=== PATIENT | female | born 1950 | race Caucasian/White ===

== ENCOUNTER 2018-07-28 00:10 | Inpatient (IN) | payer MEDICARE, OTHER ==
[~2018-07-28] VITALS: Ht 152.9 cm; Wt 68.6 kg
[2018-07-28] MEDS ORDERED: ONDANSETRON HCL 4MG/2ML INJ IV STA (00:42)
[2018-07-28] MEDS ORDERED: SODIUM CHLORIDE 0.9% 1,000 ML IV ONE ×3 (00:42→10:58)
[2018-07-28] MEDS ORDERED: KETOROLAC 30MG/ML VIAL IV STA (00:42)
[2018-07-28 01:04] LABS: BASOPHILS % 0.4 % (0.0-2.0); EOSINOPHILS % 1.2 % (0.0-5.0); HEMATOCRIT. 45.6 % (36.0-48.0); HEMOGLOBIN. 15.3 g/dL (12.0-16.0); MEAN CORPUSCULAR HEMOGLOBIN 29.7 pg (28.0-32.0); MEAN CORPUSCULAR VOLUME 88.5 fL (81.0-99.0); MEAN PLATELET VOLUME 9.3 fl (7.4-10.4); MONOCYTES % 13.2 % (2.0-8.0); NEUTROPHILS % 74.2 % (40.0-76.0); PLATELET 176 x1000/uL (130-400); RED BLOOD CELL COUNT 5.15 mill/uL (4.2-5.4); RED CELL DISTRIBUTION WIDTH 13.3 % (11.6-14.6)
[2018-07-28 01:07] LABS: CHLORIDE 103 mEq/L (98-107)
[2018-07-28 01:08] LABS: PROTHROMBIN TIME 10.3 sec (9.6-11.0)
[2018-07-28 02:20] VITALS: BP 118/50
[2018-07-28] MEDS ORDERED: IOHEXOL-300 100 ML BOTTLE ONE (02:36)
[2018-07-28] MEDS ORDERED: METRONIDAZOLE 500 MG PREMIX 100 ML IV ONE (03:45)
[2018-07-28] MEDS ORDERED: CEFTRIAXONE 1 G PREMIX 50 ML IV ONE (03:45)
[2018-07-28] MEDS ORDERED: DEXT 5%/0.45% NACL 1000ML 1,000 ML IV SCH (06:52)
[2018-07-28] MEDS ORDERED: ONDANSETRON HCL 4MG/2ML INJ IV PRN ×3 (07:00→11:15)
[2018-07-28] MEDS ORDERED: DOCUSATE SODIUM 100MG CAPSULE PO PRN (07:00)
[2018-07-28] MEDS ORDERED: DIPHENHYDRAMINE 50MG/ML VIAL IV PRN (07:00)
[2018-07-28] MEDS ORDERED: GUAIFENESIN 200MG/10ML SUGAR FREE UDC PO PRN (07:00)
[2018-07-28] MEDS ORDERED: MAGNESIUM/ALUMINUM HYDROXIDE/SIMETHICONE 30ML UDC PO PRN (07:00)
[2018-07-28] MEDS ORDERED: CLONIDINE 0.1MG TABLET PO PRN (07:00)
[2018-07-28] MEDS ORDERED: LORAZEPAM 2MG/ML CPJ IV PRN (07:00)
[2018-07-28] MEDS ORDERED: IPRATROPIUM/ALBUTEROL 0.5-3(2.5)MG/3ML NEB INH PRN (07:00)
[2018-07-28] MEDS ORDERED: HYDRALAZINE 20MG/ML VIAL IV PRN (07:00)
[2018-07-28] MEDS ORDERED: ACETAMINOPHEN 325MG TABLET PO PRN (07:00)
[2018-07-28] MEDS ORDERED: METRONIDAZOLE 500 MG PREMIX 100 ML IV SCH ×2 (07:30→11:15)
[2018-07-28] MEDS ORDERED: LEVOFLOXACIN 500MG PREMIX 100 ML IV SCH ×2 (07:30→18:00)
[2018-07-28] MEDS ORDERED: PHENYLEPHRINE HCL 10 MG/ML 1ML (IV VIAL) IV ONE (08:14)
[2018-07-28] MEDS ORDERED: GLYCOPYRROLATE 0.2 MG/ML 2ML VIAL ONE (08:14)
[2018-07-28] MEDS ORDERED: LIDOCAINE HCL/PF 1% 10 MG/ML 5ML VIAL ONE (08:14)
[2018-07-28] MEDS ORDERED: MIDAZOLAM HCL 2 MG/2 ML VIAL ONE (08:14)
[2018-07-28] MEDS ORDERED: ROCURONIUM BROMIDE 10MG/ML VIAL 5ML IV ONE (08:14)
[2018-07-28] MEDS ORDERED: FENTANYL CITRATE/PF 50MCG/ML 2ML VIAL ONE ×3 (08:14→09:45)
[2018-07-28] MEDS ORDERED: NEOSTIGMINE METHYLSULFATE 1MG/ML 10 ML VIAL ONE (08:14)
[2018-07-28] MEDS ORDERED: PROPOFOL 200MG/20ML VIAL IV ONE (08:14)
[2018-07-28] MEDS ORDERED: SUCCINYLCHOLINE CHLORIDE 200MG/10ML IV ONE (08:14)
[2018-07-28] MEDS ORDERED: SODIUM CHLORIDE 0.9% 10ML VIAL ONE (08:14)
[2018-07-28] MEDS ORDERED: METOCLOPRAMIDE HCL 10MG/2ML VIAL ONE (08:14)
[2018-07-28] MEDS ORDERED: EPHEDRINE SULFATE 50MG/ML VIAL ONE (08:14)
[2018-07-28] MEDS ORDERED: ETOMIDATE 2MG/ML 10ML VIAL IV ONE (08:15)
[2018-07-28] MEDS ORDERED: ALBUMIN HUMAN 12.5G/250ML (5%) IV ONE (08:41)
[2018-07-28] MEDS ORDERED: BUPIVACAINE HCL 0.5% (5MG/ML) 50ML ONE (09:03)
[2018-07-28] MEDS ORDERED: HYDROMORPHONE HCL/PF 2MG/ML (OR) ONE (10:44)
[2018-07-28] MEDS ORDERED: MEPERIDINE HCL/PF 25MG/ML CPJ IV PRN ×2 (11:00)
[2018-07-28] MEDS ORDERED: MORPHINE SULFATE 2 MG/ML CPJ (NOT FOR IM USE) IV PRN (11:15)
[2018-07-28] MEDS: HYDROMORPHONE HCL/PF 2MG/ML CPJ IV PRN ×5 (11:43→16:21)
[2018-07-28 12:37] LABS: HEMATOCRIT 36.9 % (36.0-48.0); HEMOGLOBIN 12.2 g/dL (12.0-16.0); MEAN CORPUSCULAR HEMOGLOBIN 29.7 pg (28.0-32.0); MEAN CORPUSCULAR VOLUME 89.5 fL (81.0-99.0); RED BLOOD CELL COUNT 4.12 mill/uL (4.2-5.4); RED CELL DISTRIBUTION WIDTH 13.4 % (11.6-14.6)
[2018-07-28 13:14] LABS: PLATELET 138 x1000/uL (130-400)
[2018-07-28 14:38] VITALS: BP 118/50
[2018-07-28] MEDS ORDERED: INFLUENZA VIRUS VACCINE(AFLURIA) 0.5ML SYR IM ONE (15:45)
[2018-07-28] MEDS ORDERED: PNEUMOCOCCAL 23-VAL P-SAC VAC 0.5 ML IM ONE (15:45)
[2018-07-28 16:25] LABS: CHLORIDE 110 mEq/L (98-107)
[2018-07-28] MEDS: DEXT 5%/0.45% NACL KCL 20MEQ/L 1,000 ML IV SCH (16:30)
[2018-07-28] MEDS: ENOXAPARIN 40MG/0.4ML SYR SUBCUT SCH (16:30)
[2018-07-28] MEDS: ASPIRIN 81MG EC TABLET PO SCH (16:30)
[2018-07-28 16:47] VITALS: BP 120/46
[2018-07-28] MEDS: CEFAZOLIN 1000MG PREMIX 50 ML IV SCH (17:28)
[2018-07-28] MEDS ORDERED: ROSU10TA25 MT (18:00)
[2018-07-28] MEDS ORDERED: METF500S7 PO (18:00)
[2018-07-28] MEDS ORDERED: METF-414 MT (18:00)
[2018-07-28] MEDS ORDERED: FURO20TA4 PO (18:00)
[2018-07-28] MEDS ORDERED: VALS160T28 MT (18:00)
[2018-07-28] MEDS ORDERED: VITA400C73 MT (18:00)
[2018-07-28] MEDS ORDERED: CHOL200059 MT (18:00)
[2018-07-28] MEDS ORDERED: CARV25TA47 MT (18:00)
[2018-07-28] MEDS ORDERED: ASPI-1158 PO (18:00)
[2018-07-28] MEDS ORDERED: CYAN50003 MT (18:00)
[2018-07-28 20:00] VITALS: BP 98/53
[2018-07-28] MEDS: HYDROCODONE/ACETAMINOPHEN 10/325MG TABLET PO PRN (20:37)
[2018-07-28] MEDS: FAMOTIDINE 20MG/2ML VIAL IV SCH (20:37)
[2018-07-28] MEDS: METRONIDAZOLE 500 MG PREMIX 100 ML IV SCH (20:38)
[2018-07-28] MEDS: SODIUM CHLORIDE 0.9% INJ 3ML FLUSH IVF SCH (23:52)
[2018-07-29] VITALS (8 sets, daily range): BP systolic 94–136; BP diastolic 41–76
[2018-07-29] MEDS: CEFAZOLIN 1000MG PREMIX 50 ML IV SCH ×2 (02:20→09:23)
[2018-07-29] MEDS: DEXT 5%/0.45% NACL KCL 20MEQ/L 1,000 ML IV SCH ×3 (02:58→22:56)
[2018-07-29] MEDS: METRONIDAZOLE 500 MG PREMIX 100 ML IV SCH ×3 (02:59→18:42)
[2018-07-29] MEDS: HYDROMORPHONE HCL/PF 2MG/ML CPJ IV PRN ×3 (04:06→20:05)
[2018-07-29] MEDS: SODIUM CHLORIDE 0.9% INJ 3ML FLUSH IVF SCH ×3 (06:00→22:56)
[2018-07-29 06:57] LABS: BASOPHILS % 0.3 % (0.0-2.0); EOSINOPHILS % 4.7 % (0.0-5.0); HEMATOCRIT. 38.4 % (36.0-48.0); HEMOGLOBIN. 12.9 g/dL (12.0-16.0); LYMPHOCYTES % 9.8 % (20.0-50.0); MEAN CORPUSCULAR HEMOGLOBIN 29.9 pg (28.0-32.0); MEAN CORPUSCULAR VOLUME 89.1 fL (81.0-99.0); MONOCYTES % 11.9 % (2.0-8.0); NEUTROPHILS % 73.3 % (40.0-76.0); PLATELET 160 x1000/uL (130-400); RED BLOOD CELL COUNT 4.31 mill/uL (4.2-5.4); RED CELL DISTRIBUTION WIDTH 13.3 % (11.6-14.6)
[2018-07-29 07:31] LABS: CHLORIDE 109 mEq/L (98-107)
[2018-07-29] MEDS: ASPIRIN 81MG EC TABLET PO SCH (08:01)
[2018-07-29] MEDS: ENOXAPARIN 40MG/0.4ML SYR SUBCUT SCH (15:53)
[2018-07-29] MEDS: LEVOFLOXACIN 250MG PREMIX 50 ML IV SCH (17:47)
[2018-07-29] MEDS: FAMOTIDINE 20MG/2ML VIAL IV SCH (20:05)
[2018-07-30] MEDS: METRONIDAZOLE 500 MG PREMIX 100 ML IV SCH ×3 (03:43→19:28)
[2018-07-30 04:00] VITALS: BP 104/46
[2018-07-30] MEDS: SODIUM CHLORIDE 0.9% INJ 3ML FLUSH IVF SCH ×3 (06:08→21:31)
[2018-07-30 06:41] LABS: BASOPHILS % 0.6 % (0.0-2.0); EOSINOPHILS % 6.7 % (0.0-5.0); HEMATOCRIT. 36.2 % (36.0-48.0); HEMOGLOBIN. 12.1 g/dL (12.0-16.0); LYMPHOCYTES % 7.2 % (20.0-50.0); MEAN CORPUSCULAR VOLUME 89.3 fL (81.0-99.0); MONOCYTES % 11.8 % (2.0-8.0); NEUTROPHILS % 73.7 % (40.0-76.0); PLATELET 156 x1000/uL (130-400); RED BLOOD CELL COUNT 4.05 mill/uL (4.2-5.4); RED CELL DISTRIBUTION WIDTH 13.5 % (11.6-14.6)
[2018-07-30 08:00] VITALS: BP 117/53
[2018-07-30 08:28] LABS: CHLORIDE 111 mEq/L (98-107)
[2018-07-30 09:02] LABS: CREATINE KINASE 125 IU/L (26-192)
[2018-07-30] MEDS: ASPIRIN 81MG EC TABLET PO SCH (09:02)
[2018-07-30] MEDS: DEXT 5%/0.45% NACL KCL 20MEQ/L 1,000 ML IV SCH ×2 (09:06→19:28)
[2018-07-30 09:15] LABS: CREATINE KINASE MB FRACTION 1.8 ng/mL (0.5-3.6)
[2018-07-30] MEDS: HYDROMORPHONE HCL/PF 2MG/ML CPJ IV PRN (11:43)
[2018-07-30 11:46] VITALS: BP 108/37
[2018-07-30 13:03] LABS: LDL CHOLESTEROL 16 mg/dL (5-100)
[2018-07-30 13:04] LABS: HDL CHOLESTEROL 9 mg/dL (40-59); T4 FREE 1.52 ng/dL (0.76-1.46)
[2018-07-30 15:31] VITALS: BP 120/60
[2018-07-30 15:57] LABS: CREATINE KINASE MB FRACTION 1.6 ng/mL (0.5-3.6)
[2018-07-30] MEDS: ENOXAPARIN 40MG/0.4ML SYR SUBCUT SCH (16:27)
[2018-07-30] MEDS: LEVOFLOXACIN 250MG PREMIX 50 ML IV SCH (17:03)
[2018-07-30 19:50] VITALS: BP 93/34
[2018-07-30] MEDS: FAMOTIDINE 20MG/2ML VIAL IV SCH (21:31)
[2018-07-30 23:48] VITALS: BP 118/57
[2018-07-30] MEDS: HYDROCODONE/ACETAMINOPHEN 10/325MG TABLET PO PRN (23:52)
[2018-07-31] MEDS: METRONIDAZOLE 500 MG PREMIX 100 ML IV SCH ×3 (02:55→18:02)
[2018-07-31 03:54] VITALS: BP 104/36
[2018-07-31] MEDS: SODIUM CHLORIDE 0.9% INJ 3ML FLUSH IVF SCH ×3 (05:19→21:00)
[2018-07-31] MEDS: DEXT 5%/0.45% NACL KCL 20MEQ/L 1,000 ML IV SCH ×2 (05:19→13:38)
[2018-07-31 07:09] LABS: BASOPHILS % 0.4 % (0.0-2.0); EOSINOPHILS % 9.1 % (0.0-5.0); HEMATOCRIT. 34.4 % (36.0-48.0); HEMOGLOBIN. 11.4 g/dL (12.0-16.0); LYMPHOCYTES % 10.1 % (20.0-50.0); MEAN CORPUSCULAR HEMOGLOBIN 29.7 pg (28.0-32.0); MEAN CORPUSCULAR VOLUME 89.5 fL (81.0-99.0); MEAN PLATELET VOLUME 8.9 fl (7.4-10.4); MONOCYTES % 12.1 % (2.0-8.0); NEUTROPHILS % 68.3 % (40.0-76.0); PLATELET 140 x1000/uL (130-400); RED BLOOD CELL COUNT 3.84 mill/uL (4.2-5.4); RED CELL DISTRIBUTION WIDTH 13.5 % (11.6-14.6)
[2018-07-31 07:36] LABS: CHLORIDE 110 mEq/L (98-107)
[2018-07-31 08:00] VITALS: BP 124/54
[2018-07-31] MEDS: ASPIRIN 81MG EC TABLET PO SCH (09:06)
[2018-07-31 12:00] VITALS: BP 111/44
[2018-07-31] MEDS: HYDROCODONE/ACETAMINOPHEN 10/325MG TABLET PO PRN (13:25)
[2018-07-31] MEDS: ENOXAPARIN 40MG/0.4ML SYR SUBCUT SCH (15:54)
[2018-07-31 16:00] VITALS: BP 116/61
[2018-07-31] MEDS: LEVOFLOXACIN 250MG PREMIX 50 ML IV SCH (17:27)
[2018-07-31 20:40] VITALS: BP 123/57
[2018-07-31] MEDS: FAMOTIDINE 20MG/2ML VIAL IV SCH (20:53)
[2018-08-01 00:10] VITALS: BP 107/51
[2018-08-01] MEDS: METRONIDAZOLE 500 MG PREMIX 100 ML IV SCH ×2 (01:44→11:19)
[2018-08-01] MEDS: HYDROCODONE/ACETAMINOPHEN 10/325MG TABLET PO PRN (02:41)
[2018-08-01 04:00] VITALS: BP 108/44
[2018-08-01] MEDS: SODIUM CHLORIDE 0.9% INJ 3ML FLUSH IVF SCH (05:14)
[2018-08-01 08:00] VITALS: BP 121/63
[2018-08-01] MEDS: ASPIRIN 81MG EC TABLET PO SCH (08:54)
[2018-08-01] MEDS: DEXT 5%/0.45% NACL KCL 20MEQ/L 1,000 ML IV SCH ×2 (11:24)
[2018-08-01 12:22] VITALS: BP 121/63
[2018-08-01] MEDS ORDERED: METRONIDAZOLE 500MG TABLET PO SCH (18:00)
[2018-08-01] MEDS ORDERED: LEVOFLOXACIN 250MG TABLET PO SCH (18:00)
== END 2018-08-01 15:00 | disposition home or self-care (01) | DRG 355 ==
LOC: ER 00:10 → EDBEDREQSVC 02:46 → EDBEDREQ 02:46 → EDBEDREQTM 02:46 → CANRESERV 08:16 → ENRESERV 08:16 → OR 08:21 → 6WST 08:22 → ENRESERV 13:09
PROVIDERS: ADMIT Internal Medicine; ATTEND Internal Medicine
PROC: 0WUF0JZ Supplement Abdominal Wall with Synthetic Substitute, Open Approach (ICD-10-PCS; principal; 2018-07-28)
DX: K43.0 Incisional hernia with obstruction, without gangrene (principal); I10 Essential (primary) hypertension; E78.5 Hyperlipidemia, unspecified; E11.9 Type 2 diabetes mellitus without complications; R74.8 Abnormal levels of other serum enzymes; I25.10 Atherosclerotic heart disease of native coronary artery without angina pectoris; Z87.891 Personal history of nicotine dependence; Z88.0 Allergy status to penicillin; Z88.6 Allergy status to analgesic agent; Z98.891 History of uterine scar from previous surgery; Z98.51 Tubal ligation status; Z95.810 Presence of automatic (implantable) cardiac defibrillator; Z79.84 Long term (current) use of oral hypoglycemic drugs
CPT/HCPCS: 36415; 74177; 80048; 80061; 82550; 82553; 82962; 83036; 83605; 83880; 84439; 84443; 84484; 85027; 85379; 86850; 86900; 86920; 88302; 93005; 93306; 93970; 94640; 96361; 96365; 96375; 97162; 97535; 99285; C1725; C1781; J0330; J0690; J0696; J1170; J1650; J1885; J1956; J2060; J2250; J2370; J2405; J2704; J2710; J2765; J3010; J3490; J7030; J7620; P9041; Q9967

== ENCOUNTER → 2023-07-30 | Day surgery (SDC) | payer MEDICARE, OTHER ==
[~2023-07-30] VITALS: Ht 157.5 cm; Wt 64.4 kg
[~2023-07-30] MED LIST: ACETAMINOPHEN 325MG TABLET PO PRN; ASPI-1406 PO; ATROPINE SULFATE 1MG/10ML SYR IV PRN; CARV25TA47 MT; CHOL200059 MT; CYAN25006 PO; DIPHENHYDRAMINE 50MG/ML VIAL ONE; FENTANYL CITRATE/PF 50MCG/ML 2ML VIAL ONE; FURO20TA4 PO; HEPARIN 1000 UNITS/ML 10ML ONE; IBUP-2741 PO; IODIXANOL 320MG/ML 100 ML BOTTLE IV ONE; LIDOCAINE HCL 1% 20ML VIAL (Pyxis) INJ ONE; METF-414 MT; MIDAZOLAM HCL 2 MG/2 ML VIAL ONE; ROSU10TA25 MT; VALS80TA30 PO; VERAPAMIL HCL 2.5 MG/1 ML 2ML VIAL IV ONE; VITA-328 MT
[2023-07-30 07:45] LABS: BASOPHILS % 1.3 % (0.0-2.0); EOSINOPHILS % 5.6 % (0.0-5.0); HEMATOCRIT. 42.7 % (36.0-48.0); HEMOGLOBIN. 14.4 g/dL (12.0-16.0); LYMPHOCYTES % 22.5 % (20.0-50.0); MEAN CORPUSCULAR HEMOGLOBIN 30.4 pg (28.0-32.0); MEAN CORPUSCULAR HGB CONC 33.7 g/dL (31.0-37.0); MONOCYTES % 8.1 % (2.0-8.0); NEUTROPHILS % 62.5 % (40.0-76.0); PLATELET 145 x1000/uL (130-400); RED BLOOD CELL COUNT 4.75 mill/uL (4.2-5.4); RED CELL DISTRIBUTION WIDTH 13.6 % (11.6-14.6); WHITE BLOOD COUNT 5.7 x1000/uL (4.5-11.0)
[2023-07-30 07:55] LABS: CHLORIDE 112 mEq/L (98-107); POTASSIUM 4.1 mEq/L (3.5-5.1); SODIUM 142 mEq/L (136-145)
[2023-07-30 07:56] LABS: CALCIUM 8.8 mg/dL (8.7-10.4); CARBON DIOXIDE 23 mEq/L (21-32)
[2023-07-30 08:01] LABS: CREATININE 0.6 mg/dL (0.6-1.0); GLUCOSE 128 mg/dL (70-105); UREA NITROGEN BLOOD 13 mg/dL (9-23)
== END | disposition home or self-care (01) ==
LOC: CCL 06:45
PROVIDERS: ATTEND Internal Medicine
DX: I25.110 Atherosclerotic heart disease of native coronary artery with unstable angina pectoris (principal); I25.2 Old myocardial infarction; R94.39 Abnormal result of other cardiovascular function study; E11.9 Type 2 diabetes mellitus without complications; F17.210 Nicotine dependence, cigarettes, uncomplicated; Z79.82 Long term (current) use of aspirin; Z79.84 Long term (current) use of oral hypoglycemic drugs; Z79.899 Other long term (current) drug therapy; Z86.73 Personal history of transient ischemic attack (TIA), and cerebral infarction without residual deficits; Z88.0 Allergy status to penicillin; Z88.1 Allergy status to other antibiotic agents; Z88.8 Allergy status to other drugs, medicaments and biological substances; Z82.49 Family history of ischemic heart disease and other diseases of the circulatory system
CPT/HCPCS: 80048; 85025; 36415; 93458; C1893; C1769 ×2; J3010; Q9967; J1200; J1644 ×2; J3490 ×2; J2250; Z7610 ×7; C1887